=== PATIENT | male | born 1985 | race Hispanic/Latino ===

== ENCOUNTER 2019-10-14 09:51 | Emergency (ER) | payer OTHER ==
[2019-10-14] MEDS ORDERED: CYCLOBENZAPRINE 10 MG TAB PO ONE (11:03)
[2019-10-14] MEDS ORDERED: oxyCODONE /ACETAMINOPHEN 5-325MG TAB PO ONE (11:03)
--- NOTE | 2019-10-14 11:13 | Event Note ---
ED Screening Note Date of service: 10/14/19 Time: 11:11 ED Screening Note: Pt complains of sudden onset of lower back pain atfer lifting a heavy object at work today no ttp of the spine or back noted on exam appears to be muscle spasm on exam pt in significant pain This initial assessment/diagnostic orders/clinical plan/treatment(s) is/are subject to change based on patients health status, clinical progression and re- assessment by fellow clinical providers in the ED. Further treatment and workup at subsequent clinical providers discretion. Patient/guardian urged not to elope from the ED as their condition may be serious if not clinically assessed and managed. Initial orders include: flexeril and oxycodone ordered reeval
[2019-10-14] MEDS ORDERED: KETOROLAC 30 MG/1 ML INJ IM ONE (11:41)
--- NOTE | 2019-10-14 11:41 | Emergency Department Report ---
Blank Doc - Documentation Documentation: BRITT thomas request Toradol 60 mg IM for patient.
[2019-10-14] MEDS ORDERED: methOCARBAMOL 1,000 MG in SODIUM CHLORIDE 0.9% 250ML 250 ML IV ONE (13:11)
--- NOTE | 2019-10-14 13:48 | XRay Report ---
LUMBAR SPINE 2 VIEWS INDICATION / CLINICAL INFORMATION: sudden pain with bending. COMPARISON: None available. FINDINGS: VERTEBRAE: No acute fracture. No significant malalignment. DISC SPACES / FACET JOINTS:No significant abnormality. PARASPINAL SOFT TISSUES:No significant abnormality. ADDITIONAL FINDINGS: None. Signer Name: Segun Xie MD Signed: 10/14/2019 1:44 PM Workstation Name: [id number]
--- NOTE | 2019-10-14 15:01 | Emergency Department Report ---
<RICHARD YATES - Last Filed: 10/14/19 18:12> ED Back Pain/Injury HPI - General Chief Complaint: Back Pain/Injury Stated Complaint: BACK Time Seen by Provider: 10/14/19 10:55 Source: patient Limitations: No Limitations - History of Present Illness Initial Comments: 34-year-old male patient without prior medical history presents with complaints of sudden onset of low back pain x today. Patient states he was at work and was lifting a bulletproof piece of glass with another individual that weighed about 100 pounds and upon lifting the item up suddenly felt a severe sharp pain in his lower back that he rates as a 10/10 in severity. Patient appears very uncomfortable. He denies any numbness/tingling/weakness in his legs, loss of bladder/bowel control, history of prior back injuries, urinary symptoms, or abdominal pain. He states he did initially have some dizziness at the start of the pain, however denies any further dizziness, headaches, shortness of breath, chest pain, fever/chills/sweats. Patient states he is unable to ambulate due to the pain in his lower back, however he denies any difficulty moving his legs or weakness in his legs - Related Data Previous Rx's Medication Instructions Recorded Last Taken Type Diclofenac Sodium 50 mg PO TID PRN #15 tablet. 10/14/19 Unknown Rx Oxycodone HCl/Acetaminophen 1 each PO Q6HR PRN #10 tablet 10/14/19 Unknown Rx [Percocet 10/325 mg] methOCARBAMOL [Robaxin TAB] 1,500 mg PO TID PRN #30 tablet 10/14/19 Unknown Rx Allergies Allergy/AdvReac Type Severity Reaction Status Date / Time No Known Allergies Allergy Unverified 10/14/19 09:58 ED Review of Systems Constitutional: denies: chills, diaphoresis, fever, malaise, weakness Eyes: denies: vision change Respiratory: denies: cough, shortness of breath Cardiovascular: denies: chest pain Gastrointestinal: denies: abdominal pain, nausea, vomiting, constipation Genitourinary: denies: urgency, dysuria, frequency, hematuria Musculoskeletal: back pain. denies: joint swelling, arthralgia Skin: denies: rash, lesions Neurological: denies: headache, weakness, numbness, paresthesias ED Past Medical Hx - Past Medical History Previous Medical History?: No - Surgical History Past Surgical History?: Yes Additional Surgical History: KNEE - Social History Smoking Status: Never Smoker Substance Use Type: Alcohol - Medications Home Medications: Home Medications Medication Instructions Recorded Confirmed Last Taken Type Diclofenac Sodium 50 mg PO TID PRN #15 tablet. 10/14/19 Unknown Rx Oxycodone HCl/Acetaminophen 1 each PO Q6HR PRN #10 tablet 10/14/19 Unknown Rx [Percocet 10/325 mg] methOCARBAMOL [Robaxin TAB] 1,500 mg PO TID PRN #30 tablet 10/14/19 Unknown Rx ED Physical Exam - General Limitations: No Limitations General appearance: alert, other (Patient appears uncomfortable due to pain in the back) - Head Head exam: Present: atraumatic, normocephalic - Eye Eye exam: Present: normal appearance - Neck Neck exam: Present: normal inspection - Respiratory Respiratory exam: Present: normal lung sounds bilaterally. Absent: respiratory distress - Cardiovascular Cardiovascular Exam: Present: regular rate. Absent: normal rhythm - GI/Abdominal GI/Abdominal exam: Present: soft, normal bowel sounds. Absent: distended, tenderness, guarding, rebound - Extremities Exam Extremities exam: Present: other (Normal strength noted in lower extremities bilaterally with normal sensation, however range of motion is limited secondary to low back pain) - Back Exam Back exam: Absent: paraspinal tenderness, vertebral tenderness - Neurological Exam Neurological exam: Present: alert, oriented X3, normal gait - Psychiatric Psychiatric exam: Present: normal affect, normal mood - Skin Skin exam: Present: warm, dry, intact, normal color. Absent: rash, cyanosis, diaphoretic, erythema ED Disposition Clinical Impression: Back muscle spasm, Protruded lumbar disc Low back strain Qualifiers: Encounter type: initial encounter Qualified Code(s): S39.012A - Strain of muscle, fascia and tendon of lower back, initial encounter Disposition: TO HOME OR SELFCARE Condition: Stable Instructions: Lumbar Disc Herniation (ED) Additional Instructions: Please avoid lifting anything heavier than 5 pounds. If you develop any weakness in your legs, difficulty walking, numbness/tingling in your legs (especially the groin and middle thigh area), blood in your stools or urine, or loss of bladder/bowel control seek immediate emergency treatment. Prescriptions: Diclofenac Sodium 50 mg PO TID PRN #[address] tablet[address] ZUNIGA Reason: Pain, Moderate (4-6) Oxycodone HCl/Acetaminophen [Percocet 10/325 mg] 1 each PO Q6HR PRN #10 tablet PRN Reason: Pain methOCARBAMOL [Robaxin TAB] 1,500 mg PO TID PRN #30 tablet PRN Reason: Muscle Spasm Referrals: ARIANNE GENAO MD [Staff Physician] - 2-3 Days ALEX CONNOLLY MD [Staff Physician] - 2-3 Days Forms: Work/School Release Form(ED) <CHANDLER BARTON - Last Filed: 10/14/19 19:03> ED Review of Systems ROS: Stated complaint: BACK Other details as noted in HPI ED Course Vital Signs 10/14/19 10/14/19 10/14/19 10:00 11:33 12:17 Temperature 97.5 F L Pulse Rate 70 65 Respiratory 20 18 18 Rate Blood Pressure 115/65 Blood Pressure 103/66 [Left] O2 Sat by Pulse 99 96 Oximetry 10/14/19 16:16 Temperature Pulse Rate Respiratory 18 Rate Blood Pressure Blood Pressure [Left] O2 Sat by Pulse Oximetry ED Medical Decision Making - Medical Decision Making I have seen this patient multiple times today in conjunction with the midlevel provider, Richard. The patient does not have any midline tenderness to palpation but does have increased pain with any movement of his body. He does not have any numbness or paresthesias, especially within the proximal thigh or groin. Patient has full muscle strength of the bilateral lower extremities. The patient has no difficulty with urination. Since the patient had continued discomfort despite the NSAIDs, IV analgesia and muscle relaxers, a CT of the lumbar spine without contrast was completed. This resulted as showing a disc protrusion of L4-5. Patient was able to get up and ambulate, although it causes some discomfort in his back. He appears to be able to complete his ADLs. Patient does not appear to have any of the emergent back conditions that would require transfer for emergent MRI or neurosurgical consultation. He will be given outpatient referrals for orthospine and/or neurosurgery. We discussed signs and symptoms for which he would need to return immediately to the closest emergency department. All the patient's questions have been answered and he understands and agrees to the plan. Critical Care Time: No Critical care attestation.: If time is entered above; I have spent that time in minutes in the direct care of this critically ill patient, excluding procedure time. ED Disposition Is pt being admited?: No
[2019-10-14] MEDS ORDERED: ONDANSETRON 4 MG ODT TAB PO ONE (16:09)
[2019-10-14] MEDS ORDERED: MORPHINE 4 MG/1 ML INJ IV ONE (16:09)
[2019-10-14] MEDS ORDERED: SODIUM CHLORIDE 0.9% 1000 ML 1,000 ML IV ONE (16:09)
--- NOTE | 2019-10-14 18:02 | Cat Scan Report ---
CT lumbar spine wo con INDICATION / CLINICAL INFORMATION: 34 years Male; acute low back pain after lifting. TECHNIQUE: Axial CT images of the lumbar spine were obtained after administration of intrathecal contrast. Sagi ttal and coronal reformatted images were produced. All CT scans at this location are performed using CT dose reduction for ALARA by means of automated exposure control. COMPARISON: None available. FINDINGS: POST-SURGICAL CHANGES: None. ALIGNMENT: There is no significant spondylolisthesis or scoliosis involving the lumbar spine. VERTEBRAE: There is no CT evidence of acute fracture involving the lumbar spine. INTERVERTEBRAL DISCS: The findings are compatible with broad base disc protrusion at L4-L5 which resu lts in mild to moderate deformity of the ventral thecal sac. The neural foramen appear patent. Remain ing lumbar disc spaces appear fairly well-maintained without CT evidence of significant stenosis. PARASPINAL SOFT TISSUES: No significant abnormality. ADDITIONAL FINDINGS: None. IMPRESSION: 1. There is no CT evidence of acute fracture involving the lumbar spine. 2. There is a broad-based central disc protrusion at L4-5 which results in mild to moderate deformity of the ventral thecal sac. Signer Name: Saul Stack MD Signed: 10/14/2019 5:57 PM Workstation Name: [id number]
[2019-10-14 20:20] VITALS: BP 137/84
== END 2019-10-14 19:17 | disposition home or self-care (01) ==
LOC: ED 09:51
DX: S39.012A Strain of muscle, fascia and tendon of lower back, initial encounter (principal); M51.36 Other intervertebral disc degeneration, lumbar region; Z79.899 Other long term (current) drug therapy; X50.0XXA Overexertion from strenuous movement or load, initial encounter; Y93.89 Activity, other specified; Y92.89 Other specified places as the place of occurrence of the external cause; Y99.8 Other external cause status
CPT/HCPCS: 72100; 72131; 96361; 96365; 96366; 96372; 96375; 99284; J1885; J2270; J2800; J7030; J7050; Q0162